=== PATIENT | female | born 1965 | race Caucasian/White ===

== ENCOUNTER → 2017-01-13 | Outpatient (CLI) | payer OTHER | LOC: MAMO 08:39 | DX: Z12.31 Encounter for screening mammogram for malignant neoplasm of breast (principal) | CPT/HCPCS: G0202 ==

== ENCOUNTER → 2020-10-30 | Outpatient (CLI) | payer OTHER ==
[~2020-10-30] MED LIST: CARVEDILOL3.125 MG PO; FAMOTIDINE20 MG PO; LEVOTHYROXINE25 MC1 PO; LISINOPRIL5 MG PO; PAIN RELIEF650 MG PO; ST. JOSEPH ASPI81 M1 PO; VITAMIN D325 MC6 PO; ZETIA10 MG PO
[2020-10-30 11:13] LABS: HEMOGLOBIN 15.2 gm/dl (12.3-15.3); RED BLOOD COUNT 5.07 M/UL (4.00-5.10); WHITE BLOOD COUNT 9.5 K/UL (4.5-11.0)
[2020-10-30 11:33] LABS: BUN/CREATININE RATIO 13 (0-10)
== END ==
LOC: OPSV2 10:00
PROVIDERS: Orthopaedic Surgery
DX: Z01.818 Encounter for other preprocedural examination (principal); M65.331 Trigger finger, right middle finger; I10 Essential (primary) hypertension; R94.31 Abnormal electrocardiogram [ECG] [EKG]; I45.10 Unspecified right bundle-branch block
CPT/HCPCS: 36415; 80048; 85027; 93005

== ENCOUNTER → 2020-11-02 | Day surgery (SDC) | payer OTHER ==
[~2020-11-02] VITALS: Ht 160 cm; Wt 85.3 kg
== END | disposition home or self-care (01) ==
LOC: OR 06:12
DX: M65.331 Trigger finger, right middle finger (principal); E78.5 Hyperlipidemia, unspecified; E03.9 Hypothyroidism, unspecified; I10 Essential (primary) hypertension; K21.9 Gastro-esophageal reflux disease without esophagitis; I38 Endocarditis, valve unspecified; K76.0 Fatty (change of) liver, not elsewhere classified; Z83.3 Family history of diabetes mellitus; Z82.49 Family history of ischemic heart disease and other diseases of the circulatory system; Z90.49 Acquired absence of other specified parts of digestive tract; Z79.82 Long term (current) use of aspirin; Z79.899 Other long term (current) drug therapy
CPT/HCPCS: J0690; J1100; J2001; J2250; J2405; J2704; J2765; J3010; J7120

== ENCOUNTER → 2022-02-14 | Outpatient (CLI) | payer OTHER | LOC: US 08:38 | DX: R74.01 Elevation of levels of liver transaminase levels (principal) | CPT/HCPCS: 76705 ==